=== PATIENT | male | born 1980 | race Caucasian/White ===

== ENCOUNTER 2018-08-28 05:40 | Day surgery (SDC) | payer BC ==
[2018-08-27 15:38] LABS: BASOPHILS 0.5 % (0-2); EOSINOPHILS 0.8 % (0-7); HEMATOCRIT 37.3 % (42.0-54.0); HEMOGLOBIN 13.5 g/dL (13.5-17.5); IMMATURE GRANULOCYTES 0.3 % (0-5); LYMPHOCYTES 22.8 % (15-50); MCH 29.4 pg (26.0-34.0); MCHC 36.2 g/dL (31.0-37.0); MCV 81.3 fL (80.0-100.0); MEAN PLATELET VOLUME 10.4 fL (7.4-10.4); MONOCYTES 7.1 % (2-11); NEUTROPHILS 68.5 % (40-80); PLATELET COUNT 265 10x3/uL (130-400); RBC 4.59 10x6/uL (4.20-6.10); RDW 12.8 % (11.5-14.5); WBC 7.4 10x3/uL (4.8-10.8)
[2018-08-27 15:55] LABS: CALC OSMOLALITY 283 mosm/kg (275-300); CALCIUM 8.4 mg/dL (8.5-10.1); CARBON DIOXIDE 26.6 mmol/L (21.0-32.0); CHLORIDE - SERUM 97 mmol/L (98-107); CREATININE - SERUM 1.1 mg/dL (0.6-1.3); POTASSIUM - SERUM 4.5 mmol/L (3.5-5.1); SODIUM 133 mmol/L (136-145); UREA NITROGEN 19 mg/dL (7-18); eGFR NON AFRICAN AMERICAN 79 mL/min (90-120)
[2018-08-27 15:56] LABS: GLUCOSE 390 mg/dL (74-106)
[~2018-08-28] VITALS: Ht 180.3 cm; Wt 86.2 kg
[~2018-08-28 05:40] MED LIST: DIABETA5 MG PO; GLUCOPHAGE1000 MG PO; LOVASTATIN40 MG PO; ZESTRIL40 MG PO
[2018-08-28] MEDS ORDERED: OZEMPIC (06:54)
[2018-08-28 06:55] VITALS: BP 101/59; Ht 180.3 cm; Wt 86.2 kg
--- NOTE | 2018-08-28 12:33 | NUR ---
PT STATED NORCO DOESNT WORK AND LEG ELEVATED ON PILLOWS X2 AND 2 ICE PACKS ON KNEE. RHEA HOSE ON OPERATIVE LEG. VS STABLE. PT OFFERED A FULL LIQ DIABETIC TRAY BUT DIDNT WANT IT. AT BEDSIDE AND INSTRUCTIONS GIVEN. PT HAS SOME SENSATION TO LOWER EXT
--- NOTE | 2018-08-28 12:44 | NUR ---
1235 PT STATED GILA BEND DOESNT WORK ON PT AND REQUEST PERCOCET AND ALSO CALLED OFFICE FOR PT ORDERS.
--- NOTE | 2018-08-28 18:09 | NUR ---
7157 DR MOLINA HERE TO TALK WITH PATIENT AND . RX WRITTEN FOR PAIN AND ANTIBIOTIC. BRACE ADJUSTED PER MD. IV REMOVED AND PT ASSISTED TO BATHROOM WITH A WALKER. NWB ON LEFT LEG. ICE PACKS MAINTAINED WHILE PT HERE IN OBS. DENIES PAIN UNABLE TO FEEL TOES BUT ABLE TO WIGGLE. INSTRUCTIONS GIVEN AND APT MADE.
== END 2018-08-28 14:15 | disposition home or self-care (01) ==
LOC: D.OPS 05:40
PROVIDERS: ATTEND Orthopaedic Surgery
DX: S83.212A Bucket-handle tear of medial meniscus, current injury, left knee, initial encounter (principal); S83.282A Other tear of lateral meniscus, current injury, left knee, initial encounter; M13.862 Other specified arthritis, left knee; S83.512A Sprain of anterior cruciate ligament of left knee, initial encounter; Z01.812 Encounter for preprocedural laboratory examination

== ENCOUNTER 2019-02-18 14:38 | Emergency (ER) | payer BC ==
[~2019-02-18] VITALS: Ht 180.3 cm; Wt 87.3 kg
[~2019-02-18 14:38] MED LIST changes: +OZEMPIC
[2019-02-18 14:43] VITALS: Ht 180.3 cm; Wt 87.3 kg
[2019-02-18] MEDS ORDERED: LIPITOR20 MG PO (14:45)
[2019-02-18 15:32] LABS: BASOPHILS 0.7 % (0-2); EOSINOPHILS 1.5 % (0-7); HEMATOCRIT 40.2 % (42.0-54.0); HEMOGLOBIN 13.5 g/dL (13.5-17.5); IMMATURE GRANULOCYTES 0.2 % (0-5); LYMPHOCYTES 33.3 % (15-50); MCH 28.4 pg (26.0-34.0); MCHC 33.6 g/dL (31.0-37.0); MCV 84.5 fL (80.0-100.0); MEAN PLATELET VOLUME 9.8 fL (7.4-10.4); MONOCYTES 7.7 % (2-11); NEUTROPHILS 56.6 % (40-80); PLATELET COUNT 232 10x3/uL (130-400); RBC 4.76 10x6/uL (4.20-6.10); RDW 12.7 % (11.5-14.5)
[2019-02-18 15:41] LABS: KETONE - SERUM NEGATIVE (NEGATIVE)
[2019-02-18 15:51] LABS: ALBUMIN 3.9 g/dL (3.4-5.0); ALKALINE PHOSPHATASE 52 U/L (46-116); ALT (SGPT) 22 U/L (10-68); BILIRUBIN - TOTAL 1.32 mg/dL (0.2-1.3); CALC OSMOLALITY 276 mosm/kg (275-300); CALCIUM 8.5 mg/dL (8.5-10.1); CARBON DIOXIDE 28.4 mmol/L (21.0-32.0); CHLORIDE - SERUM 103 mmol/L (98-107); CREATININE - SERUM 0.9 mg/dL (0.6-1.3); MAGNESIUM - SERUM 1.6 mg/dL (1.8-2.4); POTASSIUM - SERUM 4.5 mmol/L (3.5-5.1); PROTEIN - SERUM 6.7 g/dL (6.4-8.2); SODIUM 137 mmol/L (136-145); UREA NITROGEN 17 mg/dL (7-18); eGFR NON AFRICAN AMERICAN > 90 mL/min (90-120)
[2019-02-18 15:53] LABS: GLUCOSE 125 mg/dL (74-106)
[2019-02-18 16:03] LABS: APPEARANCE CLEAR (CLEAR); BILIRUBIN NEGATIVE (NEGATIVE); COLOR YELLOW (YELLOW); GLUCOSE NEGATIVE (NEGATIVE); KETONE NEGATIVE (NEGATIVE); NITRITE NEGATIVE (NEGATIVE); PROTEIN TRACE mg/dL (NEGATIVE); UROBILINOGEN NORMAL (NORMAL)
[2019-02-18 18:27] VITALS: BP 113/57
== END 2019-02-18 17:49 | disposition home or self-care (01) ==
LOC: D.ER 14:38
PROVIDERS: Family Medicine
DX: E11.649 Type 2 diabetes mellitus with hypoglycemia without coma (principal); T38.3X5A Adverse effect of insulin and oral hypoglycemic [antidiabetic] drugs, initial encounter; Z79.84 Long term (current) use of oral hypoglycemic drugs; I10 Essential (primary) hypertension